=== PATIENT | male | born 1965 | race American Indian/Alaskan Native ===

== ENCOUNTER 2018-11-26 12:39 | Emergency (ER) | payer SELFPAY ==
[2018-11-26] MEDS ORDERED: CARDENE 50 MG in NACL 0.9% 250ML 230 ML IV SCH (13:00)
[2018-11-26 13:01] LABS: Hematocrit 47.2 % (35.5-45.6); Hemoglobin 16.3 gm/dl (11.8-15.2); Mean Corpuscular HGB Conc 35 % (32-34); Mean Corpuscular Volume 85 fl (84-94); Platelet Count 273 K/mm3 (140-440); Red Blood Count 5.53 M/mm3 (3.65-5.03); Red Cell Distribution Width 14.6 % (13.2-15.2)
[2018-11-26] MEDS ORDERED: ATIVAN IV ONE (13:05)
[2018-11-26] MEDS ORDERED: ATIVAN ONE ×2 (13:06)
[2018-11-26] MEDS ORDERED: VASELINE LIP THERAPY TP PRN (13:07)
[2018-11-26] MEDS ORDERED: ARTIFICIAL TEARS OPHTH OINT OU PRN (13:07)
--- NOTE | 2018-11-26 13:09 | Consultation ---
History of Present Illness Consult date: 11/26/18 Reason for Consult: stroke alert Chief complaint: stroke alert- found altered after missing work History of present illness: 53 yo male with h/o HTN was LKN yesterday 1500 hrs by son; didn't show up for work today and son went to check on him and he was altered- EMS called; CT scan on arrival shows Left BG IPH with significant ventricular extension and layering in the 3rd and 4th ventricles. He is being intubated as he comes back from CT. No blood thinners, no h/o drug use that son is aware of. PMH/SH/FH/ROS noted in EHR Medications and Allergies Allergies Allergy/AdvReac Type Severity Reaction Status Date / Time Unable to Assess Allergy Verified 11/26/18 12:40 Active Meds: Active Medications Nicardipine HCl 50 mg/ Sodium (Chloride) 250 mls @ 25 mls/hr IV TITR GEORGE; Protocol - Level of Consciousness 1a. Level of Consciousness: resp stimuli/obtunded - LOC Questions 1b. LOC Questions: answers no questions correctly - LOC Command 1c. LOC Commands: performs no tasks correctly - Best Gaze 2. Best Gaze: normal - Visual 3. Visual: no visual loss - Facial Palsy 4. Facial Palsy: minor paralysis - Motor Arm 5a. Motor Arm Left: some gravity effort 5b. Motor Arm Right: some gravity effort - Motor Leg 6a. Motor Leg Left: some gravity effort 6b. Motor Leg Right: some gravity effort - Limb Ataxia 7. Limb Ataxia: absent - Sensory 8. Sensory: mild/moderate sensory loss - Best Language 9. Best Language: mute/global aphasia - Dysarthria 10. Dysarthria: intubated or other barrier - Extinction and Inattention 11. Extinction/Inattention: no abnormality - Scoring Total Score: 19 Stroke Severity: Moderate to Severe Stroke Results - Laboratory Findings CBC and BMP: 11/26/18 12:54 Abnormal Lab Findings: Abnormal Labs 11/26/18 12:54 WBC 16.9 H RBC 5.53 H Hgb 16.3 H Hct 47.2 H MCHC 35 H - Diagnostic Findings Additional findings: CT head with Left BG hemorrhage it looks like with significant extension into ventricles and casing of 3rd and 4th ventricles Assessment and Plan [facility] STROKE ALERT 1. IPH with ventricular extension, likely related to HTN - no tpa due to bleed - not an LVO - consult neurosurgery - keep SBP <140 d/w ed doc who was intubating patient Alma Avila MD [facility] metrics: date of service 11/26/18 PERLA 11/25/18 1500 hrs door:[id number] ts called 1238 ts connected [id number]
[2018-11-26 13:16] LABS: BUN/Creatinine Ratio 11; Blood Urea Nitrogen 18 mg/dL (9-20); Calcium 10.3 mg/dL (8.4-10.2); Hemolysis Index 15
--- NOTE | 2018-11-26 13:16 | Emergency Department Report ---
HPI - General Time Seen by Provider: 11/26/18 12:49 - HPI HPI: Room 19 The patient is a 53-year-old male presenting with a chief complaint of altered mental status. Per EMS the patient last known well time was yesterday. The patient did not show to work and subsequently EMS was called to his home and had to make entry. The patient was found unresponsive and nonverbal with leftward gaze. Per EMS the patient was hypertensive with a systolic of 250. Patient was taken to CT where an intracranial hemorrhage was seen the patient was subsequently intubated using RSI including lidocaine Location: [See above] Duration: [See above] Quality: [See above] Severity: [See above] Modifying factors: [see above] Context: [see above] Mode of transportation: [not driving] ED Past Medical Hx - Past Medical History Hx Hypertension: Yes - Surgical History Past Surgical History?: No - Family History Family history: no significant - Social History Smoking Status: Unknown if ever smoked Substance Use Type: None ED Review of Systems ROS: Stated complaint: UNRESPONSIVE Other details as noted in HPI Comment: Unobtainable due to pts medical conditions Physical Exam - Physical Exam Physical Exam: GENERAL: The patient is well-developed well-nourished male lying on stretcher, nonverbal with leftward gaze.. [] HEENT: Normocephalic. Atraumatic. Leftward gaze NECK: Trachea midline CHEST/LUNGS: Clear to auscultation. There is no respiratory distress noted. HEART/CARDIOVASCULAR: Regular. There is no tachycardia. There is no gallop rub or murmur. ABDOMEN: Abdomen is soft, nontender. Patient has normal bowel sounds. There is no abdominal distention. SKIN: There is no rash. There is no edema. There is no diaphoresis. NEURO: The patient is obtunded and does not move with sternal rub. In CT the patient was observed having spontaneous movements of both hands MUSCULOSKELETAL: There is no evidence of acute injury. ED Course - Consultations Consultation #1: 11/26/18 13:16 [place] transfer line called 11/26/18 13:46 Case discussed with neuro cutter out Dr. Campbell- recommends mannitol 1 gm/kg and transporting patient by flight - Intubation Time Out Performed: Yes Sedative: Etomidate Mg Given: 20 Paralytic: Succinylcholine Mg Given: 100 Laryngoscope: Iesha Size: 3 ET Tube Size: 8 Tube Secured Depth (cm): 24 Tube Secured Location: lips Tube Placement Confirmation: visualized tube passing t, equal breath sounds bilat, no breath sounds over epi, confirmation by capnometr Patient Tolerated Procedure: well, no complications Intubation Complications: none ED Medical Decision Making - Lab Data Result diagrams: 11/26/18 12:54 11/26/18 12:54 - Radiology Data Radiology results: report reviewed (CT head), image reviewed (CT head, chest x- ray) interpreted by me: Chest x-ray-ET tube in appropriate position. No pneumothorax, [facility] [address] [place] [address] Cat Scan Report Signed Patient: REYNA STEINER MR#: [id number] : 1965 Acct:[id number] Age/Sex: 53 / M ADM Date: 11/26/18 Loc: ED Attending Dr: Ordering Physician: FEI JOE MD Date of Service: 11/26/18 Procedure(s): CT head/brain wo con Accession Number(s): [id number] cc: FEI JOE MD CT head/brain wo con INDICATION / CLINICAL INFORMATION: 53 years Male; neuro deficits <6hrs or sx present upon awakening. TECHNIQUE: Routine CT head without contrast. All CT scans at this location are performed using CT dose reduction for ALARA by means of automated exposure control. COMPARISON: None. FINDINGS: BRAIN / INTRACRANIAL CONTENTS: There is a left thalamic hemorrhage identified, measuring approximately 3.1 cm AP by 2 cm transversely. There is focal mass effect and mild left to right midline shift. Intraventricular extension of blood products noted with most of the blood products seen in the left lateral ventricle, although there are blood products seen in the right lateral, third, and fourth ventricles. Mild hydrocephalus appears to be developing, most likely from blood products being in the cerebral aqueduct. Basal cisterns remain well-visualized at this time. Otherwise, no chronic infarct or focal atrophy. Normal brain volume and ventricular/sulcal size for age. No significant white matter abnormality. Prominent vertebral basilar system seen, which is also mildly tortuous - chronic hypertension might be a consideration. CRANIOCERVICAL JUNCTION: No significant abnormality. ORBITS: No significant abnormality of visualized orbits. SINUSES / MASTOIDS: Mucous retention cyst suggested in the right maxillary antrum. ADDITIONAL FINDINGS: None. IMPRESSION: 1. Left gangliocapsular hemorrhage with intraventricular extension and developing hydrocephalus identified, as described above. This is a positive critical value. This exam was completed at approximately 1155 central time on 11/26/2018. The exam was reviewed at approximately 12:15 and the emergency room physician was notified at approximately 12:25 PM on the same day. There was some degree of difficulty in reaching the emergency room. Signer Name: Pedro Camarena MD, III Signed: 11/26/2018 1:37 PM Workstation Name: [id number] Transcribed By: HR Dictated By: Pedro Camarena MD Electronically Authenticated By: Pedro Camarena MD Signed Date/Time: 11/26/18 1337 DD/ 1320 TD/TT: Critical Care Time: Yes Critical care time in (mins) excluding proc time.: 30 Critical care attestation.: If time is entered above; I have spent that time in minutes in the direct care of this critically ill patient, excluding procedure time. ED Disposition Clinical Impression: Hypertensive emergency, Intracranial hemorrhage, Altered mental status Disposition: DC/TX-70 ANOTHER TYPE HLTHCARE Is pt being admited?: No Does the pt Need Aspirin: No Condition: Serious Instructions: Hypertension (ED) Time of Disposition: 13:50 (awaiting acceptance)
[2018-11-26 13:25] LABS: INR TNR (0.87-1.13); Partial Thromboplastin Time TNR Sec. (24.2-36.6); Thrombin Time TNR Sec. (15.1-19.6)
[2018-11-26] MEDS: VERSED IV PRN ×2 (13:28→14:00)
--- NOTE | 2018-11-26 13:42 | Cat Scan Report ---
CT head/brain wo con INDICATION / CLINICAL INFORMATION: 53 years Male; neuro deficits <6hrs or sx present upon awakening. TECHNIQUE: Routine CT head without contrast. All CT scans at this location are performed using CT dos e reduction for ALARA by means of automated exposure control. COMPARISON: None. FINDINGS: BRAIN / INTRACRANIAL CONTENTS: There is a left thalamic hemorrhage identified, measuring approximatel y 3.1 cm AP by 2 cm transversely. There is focal mass effect and mild left to right midline shift. In traventricular extension of blood products noted with most of the blood products seen in the left lat eral ventricle, although there are blood products seen in the right lateral, third, and fourth ventri cles. Mild hydrocephalus appears to be developing, most likely from blood products being in the cereb ral aqueduct. Basal cisterns remain well-visualized at this time. Otherwise, no chronic infarct or focal atrophy. Normal brain volume and ventricular/sulcal size for a ge. No significant white matter abnormality. Prominent vertebral basilar system seen, which is also m ildly tortuous - chronic hypertension might be a consideration. CRANIOCERVICAL JUNCTION: No significant abnormality. ORBITS: No significant abnormality of visualized orbits. SINUSES / MASTOIDS: Mucous retention cyst suggested in the right maxillary antrum. ADDITIONAL FINDINGS: None. IMPRESSION: 1. Left gangliocapsular hemorrhage with intraventricular extension and developing hydrocephalus ident ified, as described above. This is a positive critical value. This exam was completed at approximately 1155 central time on 11/26. The exam was reviewed at approximately 12:15 and the emergency room physician was notified at approximately 12:25 PM on the same day. There was some degree of difficulty in reaching the emergency room. Signer Name: Pedro Camarena MD, III Signed: 11/26/2018 1:37 PM Workstation Name: [id number]
[2018-11-26] MEDS ORDERED: OSMITROL 20% IV ONE (13:49)
--- NOTE | 2018-11-26 13:50 | XRay Report ---
CHEST 1 VIEW 1:27 PM INDICATION / CLINICAL INFORMATION: ETT placement. COMPARISON: None available. FINDINGS: SUPPORT DEVICES: There is an endotracheal tube with the tip approximately 3 cm above the fátima. Ther e is a nasogastric tube with the tip overlying the proximal stomach and the proximal sidehole well be low the gastroesophageal junction. HEART / MEDIASTINUM: There is mild cardiomegaly with a left ventricular configuration. Pulmonary vasc ulature is normal. There is mild aortic tortuosity without aneurysm. LUNGS / PLEURA: No significant pulmonary or pleural abnormality. No pneumothorax. ADDITIONAL FINDINGS: No significant additional findings. IMPRESSION: 1. No acute findings. 2. Endotracheal and nasogastric tubes are in satisfactory position radiographically. Signer Name: Cruz Marsh MD Signed: 11/26/2018 1:46 PM Workstation Name: [id number]
[2018-11-26] MEDS ORDERED: MIDAZOLAM 100 MG in NACL 0.9% 80 ML IV SCH (14:00)
[2018-11-26 14:38] LABS: Anisocytosis Few; Basophils % (Manual) 0 % (0.0-1.8); Eosinophils % (Manual) 0 % (0.0-4.3); Total Cells Counted 100
[2018-11-26 14:39] LABS: Platelet Estimate Consistent w Auto
[2018-11-26 14:49] VITALS: BP 249/69
[2018-11-26] MEDS ORDERED: NACL 0.9% 1000 ML 1,000 ML ONE (14:51)
== END 2018-11-26 15:34 | disposition other institution (70) ==
LOC: ED 12:39
DX: I62.9 Nontraumatic intracranial hemorrhage, unspecified (principal); I10 Essential (primary) hypertension; I16.0 Hypertensive urgency; R41.82 Altered mental status, unspecified
CPT/HCPCS: 31500; 36415; 70450; 71045; 80048; 82803; 84484; 85007; 85025; 85730; 87070; 87205; 93005; 93010; 96365; 96368; 96375; 99291; J2060; J2150; J7030; J7050; 94002